=== PATIENT | male | born 1990 | race Two or more races ===

== ENCOUNTER 2021-05-08 15:09 | Emergency (ER) | payer SELFPAY ==
[~2021-05-08] VITALS: Ht 165.1 cm; Wt 72.6 kg
[2021-05-08 15:18] VITALS: BP 111/66
--- NOTE | 2021-05-08 15:50 | NUR ---
Called multiple times. NO response- Eloped
== END 2021-05-08 15:51 | disposition home or self-care (01) ==
LOC: ER 15:13
DX: Z53.21 Procedure and treatment not carried out due to patient leaving prior to being seen by health care provider (principal); R06.02 Shortness of breath